=== PATIENT | female | born 2000 | race Caucasian/White ===

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

== ENCOUNTER 2023-09-05 18:06 | Emergency (ER) | payer OTHER ==
[2023-09-05] MEDS ORDERED: hydrOXYzine 25 MG TAB ONE (18:47)
== END 2023-09-05 18:46 | disposition home or self-care (01) ==
LOC: ERS 18:06
DX: R20.2 Paresthesia of skin (principal)
CPT/HCPCS: 99283